=== PATIENT | female | born 1995 | race Caucasian/White ===

== ENCOUNTER → 2017-01-23 | Outpatient (CLI) | payer OTHER ==
--- NOTE | 2017-01-23 21:57 | WWHP ---
DATE OF SERVICE: 01/23/2017 CHIEF COMPLAINT: Patient is here for her routine gynecologic exam. HPI: This is a 21-year-old G0 with an LMP of 01/15/2017. The patient is currently using condoms for control. She is interested in hormonal methods of control. She states she did use control pills for about 3 to 4 months but she stopped. She had some pain in her leg and there was concern of possibly being a blood clot. This was found not to be a blood clot. 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 Her periods are regular every month. She has never had a pelvic exam in the past. PAST MEDICAL HISTORY: Migraine headaches in the past and these did not seem to be caused by her control pills. MEDICATIONS: None. ALLERGIES: No known drug allergies. PAST SURGICAL HISTORY: None. 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 She has no history of STDs. She did complete her HPV vaccination series. SOCIAL HISTORY: She denies tobacco, alcohol or drug use. She lives with her parents. She is currently attending at [employer] [facility] [place] studying accounting. She is in her first year. She has been with her boyfriend for 6 months and is sexually active. She had one other sexual partner in her lifetime and started sexual activity at age 18. FAMILY HISTORY: Grandfather had diabetes. Mother had lymphoma. REVIEW OF SYSTEMS: Weight has been stable. She denies respiratory, cardiac, or GI problems. PHYSICAL EXAM: Blood pressure 138/81. Height 6 feet 0 inches. Weight 189 pounds. Temperature 98.0, pulse 126. This a well-developed, well-nourished white female who is alert and oriented x3 in no acute distress. HEENT is within normal limits. NECK: Supple without mass or thyromegaly. CHEST AND LUNGS: Clear to auscultation. HEART: Mild tachycardia. Breasts are without mass or discharge. Axillary exam is negative for adenopathy. BACK: Negative for CVA tenderness. ABDOMEN: Soft, nontender, without palpable masses. PELVIC EXAM: Normal external genitalia. Cervix and vagina appear normal. There is no unusual discharge. There is no cervical motion tenderness. The uterus is midposition, nongravid size and nontender. There are no palpable adnexal masses or tenderness. Rectal exam was deferred. EXTREMITIES: Nontender. IMPRESSION: A 21-year-old gynecologically healthy female requesting contraception. PLAN: 1. Pap smear was deferred until age 23. 2. Self-breast examination was discussed. 3. GC and Chlamydia screening were obtained from the cervix. 4. STD prevention was discussed. I have stressed importance of limiting sexual partners and to use condoms for STD prevention. 5. We have discussed a number of types of control including barrier methods and hormonal methods. We discussed various hormonal methods including oral contraception, NuvaRing, Depo-Provera injections and the implant. The patient would like to try the NuvaRing for control. 6. Prescription for the NuvaRing was given to the patient. She will insert her first one on the first day of the onset of her next normal period. I spent a fair amount of time discussing its proper use. A prescription for the upcoming year was given to the patient. She was also instructed to read the instructions in detail when she does get a prescription. 7. She will call if she has any problems. 8. She will return in one year and p.r.n.
== END | disposition home or self-care (01) ==
LOC: WWCWWP 13:01
PROVIDERS: ATTEND Obstetrics & Gynecology
DX: Z11.3 Encounter for screening for infections with a predominantly sexual mode of transmission (principal)
CPT/HCPCS: 87491; 87591

== ENCOUNTER → 2017-04-03 | Outpatient (CLI) | payer OTHER | END | disposition home or self-care (01) | LOC: WWCWWP 11:19 | PROVIDERS: ATTEND Obstetrics & Gynecology | DX: Z53.9 Procedure and treatment not carried out, unspecified reason (principal) ==

== ENCOUNTER 2023-06-21 09:57 | Emergency (ER) | payer OTHER ==
--- NOTE | 2023-06-21 10:11 | ED ---
Chest Pain HPI - General Chief Complaint: Chest Pain Stated Complaint: Chest Pain Time Seen by Provider: 06/21/23 10:02 Source: patient, RN notes reviewed Mode of arrival: wheelchair Limitations: no limitations - History of Present Illness Initial Comments: This is a 27-year-old female who presents to the emergency department for chest pain. States that around 9 AM she started to develop a dull achy sensation in the center of her chest and epigastric region. States that she also felt very nauseous. Symptoms have improved, but are still somewhat present. Denies any personal or family history of cardiac problems. She is one month . States that she is breast-feeding. For dinner last night she had pizza. Denies any known hx of gallbladder problems. Denies any fevers, chills, sore throat, cough, palpitations, vomiting, diarrhea, back pain, or headaches. MD Complaint: chest pain - Related Data Home Medications Medication Instructions Recorded Confirmed Vit No.179/Iron/Folic 1 tablet PO DAILY 05/19/23 06/21/23 [ Tablet] Allergies Allergy/AdvReac Type Severity Reaction Status Date / Time No Known Allergies Allergy Verified 06/21/23 12:43 Review of Systems ROS Statement: Those systems with pertinent positive or pertinent negative responses have been documented in the HPI. ROS Other: All systems not noted in ROS Statement are negative. Past Medical History Additional Past Medical History / Comment(s): MIGRAINES History of Any Multi-Drug Resistant Organisms: None Reported Past Surgical History: No Surgical Hx Reported Past Anesthesia/Blood Transfusion Reactions: No Reported Reaction Past Psychological History: No Psychological Hx Reported Smoking Status: Never smoker Past Alcohol Use History: None Reported Past Drug Use History: None Reported - Past Family History Mother Family Medical History: No Reported History General Exam Limitations: no limitations General appearance: alert, in no apparent distress Head exam: Present: atraumatic, normocephalic, normal inspection Respiratory exam: Present: normal lung sounds bilaterally. Absent: respiratory distress, wheezes, rales, rhonchi, stridor, chest wall tenderness Cardiovascular Exam: Present: regular rate, normal rhythm, normal heart sounds. Absent: systolic murmur, diastolic murmur, rubs, gallop, clicks GI/Abdominal exam: Present: soft, normal bowel sounds. Absent: distended, tenderness, guarding, rebound, rigid Neurological exam: Present: alert, oriented X3, CN II-XII intact Psychiatric exam: Present: normal affect, normal mood Skin exam: Present: warm, dry, intact, normal color. Absent: rash Course Vital Signs 06/21/23 06/21/23 09:59 12:45 Temperature 98 F 98.3 F Pulse Rate 63 74 Respiratory 16 18 Rate Blood Pressure 118/79 135/77 O2 Sat by Pulse 100 97 Oximetry Chest Pain MDM - MDM This is a 27-year-old female who presents to the emergency department for chest pain. Was pt. sent in by a medical professional or institution? @ -No Did you speak to anyone other than the patient for history? @ -No Did you review nursing and triage notes? @ -Yes, and I agree, it is accurate with regards to the patient's symptoms. Were old charts reviewed? @ -No Differential Diagnosis? @ -Differential Chest Pain: Stable Angina, Unstable Angina, STEMI, NSTEMI Aortic Dissection, Pneumothorax, Musculoskeletal, Esophageal Spasm GERD, Cholecystitis, Pancreatitis, Zoster, this is not meant to be an all-inclusive list. EKG interpreted by me (3pts min.)? @ -EKG interpreted by me demonstrating the following: Sinus rhythm. Ventricular rate 64 beats per minute, VA interval 170 ms, QRS duration 110 ms, QTC 418 ms. X-rays interpreted by me (1pt min.)? @ -Chest x-ray obtained, my interpretation identifies no localized consolidations or infiltrates. CT interpreted by me (1pt min.)? @ -Not obtained U/S interpreted by me (1pt. min.)? @ -Gallbladder US obtained. My interpretation identifies cholelithiasis. What testing was considered but not performed? (CT, X-rays, U/S, labs)? Why? @ -None What meds were considered but not given? Why? @ -None Did you discuss the management of the patient with other professionals? @ -Yes, Dr. Yeh, who reviewed the patient's films and advised that if she was currently asymptomatic, she could follow-up in the office with strict return parameters. Did you reconcile home meds? @ -No Was smoking cessation discussed for >3mins.? @ -No Was critical care preformed (if so, how long)? @ -No Were there social determinants of health that impacted care today? How? (Homele ssness, low income, unemployed, alcoholism, drug addiction, transportation, low edu. Level, literacy, decrease access to med. care, senior care, rehab)? @ -No Was there de-escalation of care discussed even if they declined? (Discuss DNR or withdrawal of care, Hospice)? @ -No What co-morbidities impacted this encounter? (DM, HTN, Smoking, COPD, CAD, Cancer, CVA, Hep., AIDS, mental health diagnosis, sleep apnea, morbid obesity)? @ -Anxiety Was patient admitted / discharged? @ -Discharged. Lab work obtained revealing a minor elevation in LFTs and otherwise no acute process. Chest x-ray reveals no acute findings. Given that she had epigastric pain and nausea, in association with the elevated LFTs, we did obtain a gallbladder ultrasound. This revealed gallbladder wall thickening with sludge and small gallstones. Radiology advised correlation for acute cholecystitis. Patient was completely asymptomatic on reevaluation without any pain medication. I did discuss the case with Dr. Yeh, general surgery. He reviewed the patient's ultrasound, and advised that because she was currently asymptomatic, she could follow up with one of their providers in the office. Patient is comfortable with this, as she is not in any active pain. Case management made her an appointment with Dr. Street on 06/26 at 11:30 AM. This was discussed with the patient who will follow up as scheduled. Advised to follow a low-fat bland diet for the meantime to reduce the risk of future episodes. Also advised ibuprofen and Tylenol as needed for pain relief. Undiagnosed new problem with uncertain prognosis? @ -None Drug Therapy requiring intensive monitoring for toxicity (Heparin, Nitro, Insulin, Cardizem)? @ -None Were any procedures done? @ -None Diagnosis/symptom? @ -Biliary colic, cholelithiasis Acute, or Chronic, or Acute on Chronic? @ -Acute Uncomplicated (without systemic symptoms) or Complicated (systemic symptoms)? @ -Uncomplicated Side effects of treatment? @ -None Exacerbation, Progression, or Severe Exacerbation] @ -Not applicable Poses a threat to life or bodily function? @ -No Return precautions reviewed in depth, the patient is instructed to return to the emergency department with any new, worsening, or concerning symptoms. Patient verbalized understanding. This case was discussed in detail with the attending ED physician, Dr. Greer. Presentation, findings, and treatment plan discussed in detail as well. Disposition Clinical Impression: Biliary colic, Cholelithiasis Disposition: HOME SELF-CARE Instructions (If sedation given, give patient instructions): Biliary Colic (ED) , Gallstones (ED) Additional Instructions: Return to the emergency department with any new, worsening, or concerning symptoms. You will need to follow a low-fat and bland diet for the meantime to reduce the risk of a recurrence. Alternate with ibuprofen and Tylenol as needed for pain relief. Follow up with general surgery on 06/26 as scheduled. Is patient prescribed a controlled substance at d/c from ED?: No Referrals: None,Stated [Primary Care Provider] - 1-[address] MD [STAFF PHYSICIAN] - 06/26/23 3:00 pm
[2023-06-21 10:26] LABS: Basophils % (A) 0 %; Eosinophils # (A) 0.6 k/uL (0-0.7); Eosinophils % (A) 9 %; HCT 39.6 % (34.0-46.0); HGB 13.4 gm/dL (11.4-16.0); Lymphocytes # (A) 1.9 k/uL (1.0-4.8); Lymphocytes % (A) 27 %; MCH 28.5 pg (25.0-35.0); MCHC 33.9 g/dL (31.0-37.0); MCV 84.1 fL (80.0-100.0); Mean Platelet Volume 7.4; Monocytes # (A) 0.3 k/uL (0-1.0); Monocytes % (A) 4 %; Neutrophils % (A) 59 %; Platelet Count 295 k/uL (150-450); RBC 4.71 m/uL (3.80-5.40); RDW 13.9 % (11.5-15.5); WBC 6.8 k/uL (3.8-10.6)
[2023-06-21 10:39] LABS: ALT 47 U/L (4-34); AST 49 U/L (14-36); African American GFR (CKD) >90 (>60 ml/min/1.73 sqM); Albumin 4.4 g/dL (3.5-5.0); Alkaline Phosphatase 151 U/L (38-126); Anion Gap 11 mmol/L; Blood Urea Nitrogen 13 mg/dL (7-17); Calcium 10.2 mg/dL (8.4-10.2); Carbon Dioxide 22 mmol/L (22-30); Chloride 105 mmol/L (98-107); Glucose 110 mg/dL (74-99); Magnesium 1.8 mg/dL (1.6-2.3); Non-African American GFR(CKD) >90 (>60 ml/min/1.73 sqM); Potassium 3.7 mmol/L (3.5-5.1); Sodium 138 mmol/L (137-145); Total Bilirubin 0.6 mg/dL (0.2-1.3); Total Protein 7.7 g/dL (6.3-8.2)
[2023-06-21 10:44] LABS: Prothrombin Time 10.3 sec (9.0-12.0)
[2023-06-21 11:17] LABS: Amylase 61 U/L (30-110); Lipase 112 U/L (23-300)
--- NOTE | 2023-06-21 11:32 | XR ---
EXAMINATION TYPE: XR chest 2V DATE OF EXAM: 06/21/2023 COMPARISON: 01/24/2016 TECHNIQUE: PA and lateral views submitted. HISTORY: Chest pain and shortness of breath FINDINGS: The lungs are clear and there is no pneumothorax, pleural effusion, or focal pneumonia. Heart size normal and no overt failure. Osseous structures demonstrate hypertrophic and degenerative changes of the spine. Hyperinflation suggests COPD. Mild prominence of the azygos vein. IMPRESSION: 1. No acute process. Mild upper mediastinal prominence may represent a prominent azygos vein. Short-t erm follow-up CT chest could be obtained for confirmation to exclude other etiologies. 2. Correlate for asthma or COPD.
--- NOTE | 2023-06-21 12:32 | US ---
EXAMINATION TYPE: US gallbladder DATE OF EXAM: 06/21/2023 COMPARISON: NONE CLINICAL INDICATION: Female, 27 years old with history of Epigastric pain, elevated LFTs; Epigastric pain for 1 day; elevated LFT TECHNIQUE: Multiple sonographic images of the right upper quadrant are obtained. FINDINGS: EXAM MEASUREMENTS: Liver Length: 19.0 cm Gallbladder Wall: 0.42 cm CBD: 0.17 cm Right Kidney: 12.9 x 4.9 x 5.4 cm VP INFORMATICS NOTES: Pancreas: Tail obscured by overlying bowel gas Liver: Hepatomegaly Gallbladder: Shadowing echogenic foci with thickened gallbladder wall Evidence for sonographic Lindsay's sign: No CBD: wnl Right Kidney: wnl IMPRESSION: 1. Mild hepatomegaly with coarsened hepatic echotexture. Correlate with liver function studies for he patocellular disease or hepatic steatosis. 2. The gallbladder wall is thickened and there is evidence of sludge with tiny gallstones. Correlate for acute cholecystitis.
[2023-06-21] MEDS ORDERED: ACET/COD 300 MG/30 MG STARTER PACK 6 TAB BTL PO STA (13:38)
[2023-06-21] MEDS ORDERED: IBUPROFEN 600 MG STARTER PACK 4 TAB BTL PO STA (13:38)
[2023-06-21] MEDS ORDERED: ONDANSETRON 4 MG ODT STARTER PACK 2 TAB BTL PO STA (13:38)
[2023-06-21 14:09] VITALS: BP 116/81; PULSE 70; RESP 17; TEMP 98
== END 2023-06-21 14:08 | disposition home or self-care (01) ==
LOC: EC 09:57
DX: K80.50 Calculus of bile duct without cholangitis or cholecystitis without obstruction (principal)
CPT/HCPCS: 36415; 93005; 85379; 80053; 82150; 83690; 83735; 84484; 85025; 85610; 85730; 71046; 76705; 99285; S0119

== ENCOUNTER 2024-09-03 06:01 | Inpatient (IN) | payer OTHER ==
[2024-09-03] MEDS ORDERED: LIDOCAINE 0.5% (PF) 5 MG/ML (50 ML SDV) SQ PRN (06:36)
[2024-09-03] MEDS ORDERED: TRANEXAMIC 1,000 MG/100ML-NACL 1,000 MG in EMPTY BAG 1 BAG IV PRN (06:36)
[2024-09-03] MEDS ORDERED: OXYTOCIN 10 UNIT/ML 1 ML VIAL IM PRN (06:36)
[2024-09-03] MEDS ORDERED: miSOPROStoL 200 MCG TAB RECTAL PRN (06:36)
[2024-09-03] MEDS ORDERED: miSOPROStoL 200 MCG TAB PO PRN (06:36)
[2024-09-03] MEDS ORDERED: CARBOPROST TROMETHAMINE 250 MCG/ML 1 ML AMP IM PRN (06:36)
[2024-09-03] MEDS ORDERED: METHYLERGONOVINE 0.2 MG/ML 1 ML AMP IM PRN (06:36)
[2024-09-03] MEDS ORDERED: TERBUTALINE 1 MG/ML VIAL SQ PRN (06:36)
[2024-09-03] MEDS: LACTATED RINGERS 1,000 ML IV SCH ×2 (06:45→07:25)
[2024-09-03] MEDS: OXYTOCIN 30 UNITS/500 ML NS 30 UNIT in SALINE 1 500ML.BAG IV SCH ×2 (06:50→23:01)
[2024-09-03 07:05] LABS: Basophils % (A) 1 %; Eosinophils # (A) 0.3 k/uL (0-0.7); Eosinophils % (A) 3 %; HCT 35.5 % (34.0-46.0); HGB 11.5 gm/dL (11.4-16.0); Hypochromasia Slight; Lymphocytes # (A) 2.2 k/uL (1.0-4.8); Lymphocytes % (A) 24 %; MCH 28.1 pg (25.0-35.0); MCHC 32.3 g/dL (31.0-37.0); MCV 87.1 fL (80.0-100.0); Mean Platelet Volume 7.4; Monocytes # (A) 0.5 k/uL (0-1.0); Monocytes % (A) 6 %; Neutrophils % (A) 66 %; Platelet Count 323 k/uL (150-450); RBC 4.07 m/uL (3.80-5.40); RDW 13.6 % (11.5-15.5); WBC 9.2 k/uL (3.8-10.6)
[2024-09-03] MEDS ORDERED: NALBUPHINE 10 MG/ML (10 ML MDV) IV PRN (08:40)
--- NOTE | 2024-09-03 08:44 | P.HPOB ---
History of Present Illness H&P Date: 09/03/24 Chief Complaint: 39-0/7 weeks, elective induction The patient is a 28-year-old 2 para 1-0-0-1 admitted at 39-0/7 weeks as established by last menstrual period confirmed by 7-week ultrasound. She is admitted for elective induction with all signs reassuring, category 1 heart rate tracing. Her has been entirely uncomplicated and group B strep status is negative. Obstetrical history: 2 para 1-0-0-1 with 1 term vaginal delivery without complications. Current statistics are listed in history of present illness. EDC of 09/10/2024 was established by last menstrual period and confirmed by 7-week ultrasound. Laboratory workup demonstrates a blood type of O+ with a negative antibody screen. Rubella status is immune. The remainder of the laboratory workup was within normal limits. 1 hour Glucola was normal and group B strep status is negative. Gynecologic history: Unremarkable with no history of any infections to include STDs. Review of Systems Review of systems is confined to history of present illness. Past Medical History Additional Past Medical History / Comment(s): MIGRAINES History of Any Multi-Drug Resistant Organisms: None Reported Past Surgical History: Cholecystectomy Additional Past Surgical History / Comment(s): July 2023-cholecystectomy Past Anesthesia/Blood Transfusion Reactions: No Reported Reaction Past Psychological History: No Psychological Hx Reported Smoking Status: Never smoker Past Alcohol Use History: None Reported Past Drug Use History: None Reported - Past Family History Mother Family Medical History: Cancer Medications and Allergies Home Medications Medication Instructions Recorded Confirmed Type Vit No.179/Iron/Folic 1 tablet PO DAILY 05/19/23 09/03/24 History [ Tablet] Allergies Allergy/AdvReac Type Severity Reaction Status Date / Time No Known Allergies Allergy Verified 06/21/23 12:43 Exam Intake and Output 09/02/24 09/03/24 09/03/24 22:59 06:59 14:59 Other: Weight 113.398 kg In general, this is a well-developed, well-nourished white female in no acute distress. Her heart has a regular rhythm and rate without murmur. Her lungs are clear to auscultation bilaterally in all bauer. Her abdomen is gravid, nondistended, has normal active bowel sounds, soft, nontender, and without any palpable masses aside from the uterine fundus. Her extremities are without any cyanosis, clubbing, or significant edema and are nontender to palpation bilaterally. Digital cervical examination demonstrates her cervix to be 2+ centimeters dilated, 60 to 70% effaced, with a vertex and presentation at -2 station. Artificial rupture of membranes is carried out demonstrating clear flu id. Results Result Diagrams: 09/03/24 06:56 Assessment and Plan (1) Term Current Visit: Yes Status: Acute Code(s): Z34.90 - ENCNTR FOR SUPRVSN OF NORMAL , UNSP, UNSP TRIMESTER SNOMED Code(s): 49382596 Plan: The patient has been admitted for elective induction of labor. Pitocin augmentation has been started and she has undergone artificial rupture membranes. She will have close maternal and surveillance and expectant management will be practiced. She is a good candidate for either IV or epidural analgesia, which ever she may choose.
[2024-09-03] MEDS ORDERED: ROPIVACAINE 5 MG/ML 30 ML VIAL ONE (14:25)
[2024-09-03] MEDS ORDERED: SODIUM CHLORIDE 0.9% 250 ML BAG ONE (14:25)
[2024-09-03] MEDS ORDERED: fentaNYL (PF) 50 MCG/ML 5 ML AMP ONE (14:25)
[2024-09-03] MEDS: CITRIC ACID-SODIUM CITRATE 15 ML CUP PO ONE (21:36)
[2024-09-03] MEDS ORDERED: OXYTOCIN 30 UNITS/500 ML NS BAG IV ONE (21:46)
[2024-09-03] MEDS ORDERED: KETOROLAC 15 MG/ML 1 ML VIAL ONE (21:46)
[2024-09-03] MEDS ORDERED: MORPHINE SULFATE (PF) 0.3 MG/0.3 ML SYR ONE (21:46)
[2024-09-03] MEDS ORDERED: NALBUPHINE 10 MG/ML (10 ML MDV) ONE (21:46)
[2024-09-03] MEDS ORDERED: ONDANSETRON 4 MG/2 ML VIAL ONE (21:46)
[2024-09-03] MEDS ORDERED: diphenhydrAMINE 25 MG CAP PO PRN (22:36)
[2024-09-03] MEDS ORDERED: ZOLPIDEM 5 MG TAB PO PRN (22:36)
[2024-09-03] MEDS ORDERED: ONDANSETRON 4 MG/2 ML VIAL IVP PRN (22:36)
[2024-09-03] MEDS ORDERED: diphenhydrAMINE 50 MG CAP PO PRN (22:36)
[2024-09-03] MEDS ORDERED: NALOXONE 0.4 MG/ML 1 ML VIAL IV PRN (22:36)
[2024-09-03] MEDS ORDERED: SIMETHICONE 80 MG CHEWABLE PO PRN (22:36)
[2024-09-03] MEDS ORDERED: LANOLIN CREAM 1 GM TUBE TOPICAL PRN (22:36)
[2024-09-03] MEDS ORDERED: diphenhydrAMINE 50 MG/ML 1 ML VIAL IVP PRN ×2 (22:36)
[2024-09-03] MEDS ORDERED: METOCLOPRAMIDE 5 MG/ML 2 ML VIAL IVP PRN (22:36)
--- NOTE | 2024-09-03 22:44 | P.OP ---
Date of Procedure: 09/03/24 Preoperative Diagnosis: #1. 39-0/7 weeks, induction #2. Arrest of dilation and descent #3. intolerance of labor Postoperative Diagnosis: Same plus #4. occiput posterior position Procedure(s) Performed: #1. Primary low-transverse section Anesthesia: epidural Surgeon: Lawrence Esteves Heel Cover Softener #1: Mayte Giraldo Estimated Blood Loss (ml): 716 IV fluids (ml): 1,000 Urine output (ml): 1,000 Pathology: none sent Condition: stable Disposition: floor Operative Findings: The operatively, the patient had labor to approximately 7 to 8 cm where she remained for approximately 5 to 6 hours. She additionally began having repetitive variable decelerations ultimately prompting stoppage of Pitocin. Continued decelerations would not allow Pitocin to be restarted. As result of both arrest of dilation and descent and intolerance of the labor process, the decision was made jointly with the patient to proceed with primary low- transverse section. She was taken to the operating room where she was delivered of a viable 8 pound 11 ounce baby boy with Apgars of 8 at 1 minute and 9 at 5 minutes delivered in the direct occiput posterior position. The placenta was delivered manually, intact, and grossly normal with a grossly normal three- vessel cord. The uterus, tubes, and ovaries were entirely normal to inspection. Description of Procedure: The patient was prepped and draped in usual fashion after epidural anesthesia had been bolused by the anesthesiologist. A Pfannenstiel incision was made and extended into the abdominal cavity without difficulty. The bladder peritoneum was significantly distal to the intended site of incision and was left intact. A 2 cm incision was made in the transverse plane of the lower uterine segment to enter the uterus at which time a small amount of clear fluid was again noted. The incision was extended in both directions using the bandage scissors. The head was delivered up and through the incision in the occiput posterior position where the nose and mouth were thoroughly suction. The remainder of the was delivered onto the field where the cord was doubly clamped, cut, and the passed for resuscitative measures with weight and Apgars as noted above. The placenta was delivered manually and intact as noted above. The uterus was exteriorized and the anterior cavity the uterus swept of any remaining placental or membranous fragments. The margins of the uterine incision were grasped with Deshpande clamps and the incision closed in 2 layers. The first layer was a running locking stitch of 0 chromic catgut followed by a running imbricating layer of 0 chromic catgut, each from margin to margin. Hemostasis appeared to be excellent. The posterior cul-de-sac was suctioned with a guard followed by laparotomy sponge. The uterine and ovarian findings were normal as noted above. The uterus was replaced within the abdominal cavity and the uterine incision reexamined and found to be hemostatic. The gutters were swept of any remaining blood, fluid, or clot. The parietal peritoneum was loosely reapproximated and the layer of muscles examined and found to be hemostatic. The fascia was closed with a single running stitch of 0 Vicryl proceeding from lateral margin to lateral margin. The subcutaneous tissues were irrigated, made hemostatic with the Bovie, and reapproximated with a running stitch of 3-0 plain catgut. The skin was reapproximated with a running subcuticular stitch of 4-0 Vicryl followed by half-inch Steri-Strips placed with Mastisol. Quantitative blood loss for the case was 716 mL. There were no complications. All sponge, instrument, and needle counts were correct. The patient tolerated the procedure well and proceeded to the recovery room in stable condition. Both mother and are resting comfortably in recovery.
[2024-09-04] MEDS: ACETAMINOPHEN TAB 500 MG TAB PO SCH (00:25)
[2024-09-04] MEDS: KETOROLAC 15 MG/ML 1 ML VIAL IVP PRN (04:30)
[2024-09-04 05:53] LABS: Basophils % (A) 0 %; Eosinophils # (A) 0.1 k/uL (0-0.7); Eosinophils % (A) 1 %; HCT 32.5 % (34.0-46.0); HGB 10.7 gm/dL (11.4-16.0); Lymphocytes # (A) 1.7 k/uL (1.0-4.8); Lymphocytes % (A) 12 %; MCH 28.5 pg (25.0-35.0); MCHC 32.9 g/dL (31.0-37.0); MCV 86.7 fL (80.0-100.0); Monocytes # (A) 0.8 k/uL (0-1.0); Monocytes % (A) 6 %; Neutrophils # (A) 10.6 k/uL (1.3-7.7); Neutrophils % (A) 80 %; Platelet Count 259 k/uL (150-450); RBC 3.75 m/uL (3.80-5.40); RDW 13.6 % (11.5-15.5); WBC 13.3 k/uL (3.8-10.6)
--- NOTE | 2024-09-04 06:19 | P.PN ---
Progress Note - Text Progress Note Date: 09/04/24 Patient doing well. Ambulating w/o paresthesia or weakness. Denies headache. Minimal pruritis. Pain well controlled. Epidural site w/ mild bruising. POD#1 s/p w/ epidural duramorph - continue multimodal analgesia
[2024-09-04] MEDS ORDERED: ACETAMINOPHEN TAB 500 MG TAB PO SCH (08:00)
--- NOTE | 2024-09-04 08:33 | P.PNOBGPC ---
Subjective - Subjective Patient reports: Reports appetite normal, Reports voiding normally, Reports pain well controlled, Reports ambulating normally : doing well, nursing well Objective - Vital Signs Latest vital signs: Vital Signs Temp Pulse Resp BP Pulse Ox 09/04/24 02:35 97.8 F 61 16 102/68 97 09/04/24 00:35 98.6 F 102 H 16 131/69 97 09/04/24 00:20 101 H 16 122/64 97 09/04/24 00:05 95 16 127/65 96 09/03/24 23:50 96 16 118/58 94 L 09/03/24 23:35 97 16 112/56 96 09/03/24 23:20 93 16 112/59 97 09/03/24 23:05 88 16 113/59 99 09/03/24 22:50 94 16 115/56 98 09/03/24 22:35 97.4 F L 102 H 16 108/59 96 Intake and Output 09/03/24 09/04/24 09/04/24 22:59 06:59 14:59 Intake Total 1000 Output Total 1716 895 Balance -716 -895 Intake: IV 1000 Output: Urine 1000 800 Uretheral (Betancourt) 800 Output, Quantitative 716 95 Blood Loss Other: Voiding Method Indwelling Catheter - Exam Extremities: Present: normal Abdomen: Present: normal appearance, soft. Absent: distention, tenderness Incision: Present: normal, dry, intact Uterus: Present: normal, firm (The uterine fundus is tonic and appropriately tender below the umbilicus.) - Labs Labs: Abnormal Lab Results - Last 24 Hours (Table) 09/04/24 Range/Units 05:38 WBC 13.3 H (3.8-10.6) k/uL RBC 3.75 L (3.80-5.40) m/uL Hgb 10.7 L (11.4-16.0) gm/dL Hct 32.5 L (34.0-46.0) % Neutrophils # 10.6 H (1.3-7.7) k/uL Assessment and Plan (1) Term Current Visit: Yes Status: Acute Code(s): Z34.90 - ENCNTR FOR SUPRVSN OF NORMAL , UNSP, UNSP TRIMESTER SNOMED Code(s): 79967536 (2) S/P section Current Visit: Yes Status: Acute Code(s): Z98.891 - HISTORY OF UTERINE SCAR FROM PREVIOUS SURGERY SNOMED Code(s): 096458029 Plan: Continue routine and postoperative care. I have encouraged the patient ambulate in the hallways routinely. She is tolerating a regular diet. I would anticipate discharge home tomorrow pending no complications.
[2024-09-04] MEDS: SENNOSIDES-DOCUSATE SODIUM 1 EACH TAB PO SCH (08:36)
[2024-09-04] MEDS: IBUPROFEN 800 MG TAB PO SCH (15:40)
[2024-09-04 22:00] VITALS: RESP 16
[2024-09-05] MEDS ORDERED: IBUPROFEN 800 MG TAB PO SCH
[2024-09-05 08:27] VITALS: BP 114/66; PULSE 78; TEMP 97.4
--- NOTE | 2024-09-05 10:53 | P.DS ---
Providers Date of admission: 09/03/24 06:01 Expected date of discharge: 09/05/24 Attending physician: Lawrence Esteves Primary care physician: Stated None - Discharge Diagnosis(es) (1) Term Current Visit: Yes Status: Acute (2) S/P section Current Visit: Yes Status: Acute Hospital Course: The patient is a 28-year-old 2 para 1-0-0-1 admitted at 39-0/7 weeks by good dating parameters. She is admitted for elective induction with all signs reassuring and a category 1 heart rate tracing. Her was uncomplicated and group B strep status was negative. On labor and delivery, she had Pitocin started and underwent artificial rupture of membranes. She made slow progress through the latent phase of labor and ultimately did progress into the active phase of labor where she reached approximately 7 to 8 cm of dilation and then arrested further dilation and descent over the course of the next 5 to 6 hours. She additionally began to develop repetitive moderate to deep variable decelerations with any degree of contractions prompting Pitocin augmentation to be halted. Given both the arrest of dilation and descent and intolerance of labor, she was counseled and agreed to undergo primary low-transverse section. She was taken to the operating room where she was delivered of a viable 8 pound 11 ounce baby boy with Apgars of 8 at 1 minute and 9 at 5 minutes. Her post and postoperative course was unremarkable with vital signs remaining stable and her temperature was afebrile throughout. She was deemed stable for discharge on postoperative day #2 and was discharged home to follow-up in the office in 2 weeks for an incision check in 6 weeks routinely. Discharge instructions included calling for any significantly increased bleeding or foul-smelling lochia, significantly increased fever abdominal pain, perineal complaints, breast complaints, incisional complaints, or anything else that concerned her. She was additionally instructed to have nothing in the vagina for at least 6 weeks time to include intercourse and to abstain from any heavy lifting over the same period of time. She was lastly instructed to do no driving until off of all pain medications or 2 weeks time, whichever came first. She understood her instructions and agrees to follow-up as noted above. Discharge medications included evha-tus-loqqddg analgesic pain medications as well as a prescription for oxycodone 5 mg, 1-2 p.o. every 6 hours as needed pain, #20 dispensed with no refills. Maternal blood type is O+ and rubella status is immune. Discharge hemoglobin and hematocrit were 10.7 and 32.5 respectively. Procedures: #1. Pitocin induction #2. Artificial rupture of membranes #3. Epidural analgesia #4. Primary low-transverse section Patient Condition at Discharge: Stable Plan - Discharge Summary New Discharge Prescriptions: No Action Vit No.179/Iron/Folic [ Tablet] 1 tablet PO DAILY Discharge Medication List Vit No.179/Iron/Folic [ Tablet] 1 tablet PO DAILY 05/19/23 [History] Follow up Appointment(s)/Referral(s): Lawrence Esteves MD [STAFF PHYSICIAN] - 2 Weeks (2 week follow up appt 09/17/2024 1:45pm 6 weeks follow up appt 10/15/2024 @ 1:45 ) Discharge Disposition: HOME SELF-CARE
== END 2024-09-05 14:00 | disposition home or self-care (01) | DRG 788 ==
LOC: 4FBP 06:01
PROVIDERS: ADMIT Obstetrics & Gynecology; ATTEND Obstetrics & Gynecology
PROC: 10907ZC Drainage of Amniotic Fluid, Therapeutic from Products of Conception, Via Natural or Artificial Opening (ICD-10-PCS; 2024-09-03)
PROC: 3E033VJ Introduction of Other Hormone into Peripheral Vein, Percutaneous Approach (ICD-10-PCS; 2024-09-03)
PROC: 10D00Z1 Extraction of Products of Conception, Low, Open Approach (ICD-10-PCS; principal; 2024-09-03 22:00)
DX: O32.8XX0 Maternal care for other malpresentation of fetus, not applicable or unspecified (principal); O62.1 Secondary uterine inertia; O76 Abnormality in fetal heart rate and rhythm complicating labor and delivery; Z37.0 Single live birth; Z3A.39 39 weeks gestation of pregnancy
CPT/HCPCS: 85025; 86850; 86900; 86901

== ENCOUNTER 2024-11-27 07:53 | Day surgery (SDC) | payer OTHER ==
--- NOTE | 2024-11-26 02:12 | HP ---
HISTORY AND PHYSICAL PROPOSED DATE OF SURGERY: 11/27/2024. HISTORY OF PRESENT ILLNESS: The patient is a 28-year-old, 2, para 2-0-0-2 who presents for visit with no specific concerns, but has requested permanent sterilization. After discussion of options for treatment, she has opted to proceed with bilateral salpingectomy. She is aware of other long-term and reversible methods of contraception. PAST MEDICAL HISTORY: Significant only for migraine headaches. PAST SURGICAL HISTORY: Significant for cholecystectomy in 2022. OBSTETRICAL HISTORY: 2, para 2-0-0-2, with a vaginal delivery followed by a section. Current method of contraception is condoms leading up to permanent sterilization. GYNECOLOGIC HISTORY: Unremarkable with no history of any infections to include STDs. FAMILY HISTORY: Noncontributory. SOCIAL HISTORY: The patient is single and employed at [employer]. She is a nonsmoker and denies any other social concerns of consequence. CURRENT MEDICATIONS: Include only vitamins daily. ALLERGIES: No known drug allergies. REVIEW OF SYSTEMS: Confined to History of Present Illness. PHYSICAL EXAMINATION: VITAL SIGNS: Stable. The patient is afebrile. GENERAL: This is a well-developed, well-nourished white female in no acute distress. HEART: Has a regular rhythm and rate without murmur. LUNGS: Clear to auscultation bilaterally in all bauer. ABDOMEN: Nondistended, has normoactive bowel sounds, soft, nontender, without any palpable masses, hepatosplenomegaly, or hernias. EXTREMITIES: Without any cyanosis, clubbing, or edema and are nontender to palpation. PELVIC: Deferred to the operating room. ASSESSMENT AND PLAN: Contraceptive management: The patient has requested permanent sterilization and is aware of other intermediate and reversible methods of control. We had a discussion regarding the options for tubal occlusion versus tubal removal and she has requested to proceed with laparoscopic bilateral salpingectomy. The risks and complications of the procedure have been thoroughly discussed including the risks for bleeding, bleeding requiring transfusion, infection, and injury to local structures to specifically include the bowel, bladder, and ureters. She has understood all of these and has agreed to proceed. We are scheduled for laparoscopic bilateral salpingectomy on the morning of November 27, 2024. MMODL / IJN: [id number] /
[~2024-11-27 07:53] MED LIST: Pre Op ABX Message 1 EACH MISC MISCELLANE ONE
[2024-11-27] MEDS ORDERED: droPERidol 5 MG/2 ML VIAL IVP ONE (08:03)
[2024-11-27] MEDS ORDERED: SCOPOLAMINE 1 MG/72 HR PATCH TRANSDERM ONE (08:03)
[2024-11-27] MEDS ORDERED: HYDROmorphone 0.5 MG/0.5 ML SYRINGE IVP PRN (08:03)
[2024-11-27] MEDS: IV FLUID CONTINUATION 1,000 ML IV ONE (08:20)
[2024-11-27] MEDS: LIDOCAINE 1% (10MG/ML) FOR IV START INTRADERMA PRN (08:20)
[2024-11-27] MEDS: LACTATED RINGERS 1,000 ML IV SCH (08:20)
[2024-11-27] MEDS: ONDANSETRON 4 MG/2 ML VIAL IVP ONE (08:36)
[2024-11-27] MEDS: DEXAMETHASONE SOD PHOSPHATE 4 MG/ML 1 ML VIAL IV ONE (08:37)
[2024-11-27] MEDS ORDERED: SUCCINYLCHOLINE CHLORIDE 200 MG/10 ML VIAL IV ONE (09:14)
[2024-11-27] MEDS ORDERED: fentaNYL (PF) 50 MCG/ML 2 ML AMP ONE (09:14)
[2024-11-27] MEDS ORDERED: PHENYLEPHRINE 10 MG/ML VIAL ONE (09:14)
[2024-11-27] MEDS ORDERED: NEOSTIGMINE 1 MG/ML 10 ML VIAL ONE (09:14)
[2024-11-27] MEDS ORDERED: ePHEDrine 50 MG/ML 1 ML VIAL ONE (09:14)
[2024-11-27] MEDS ORDERED: LIDOCAINE 1% INJ 10MG/ML (20 ML MDV) ONE (09:14)
[2024-11-27] MEDS ORDERED: KETOROLAC 15 MG/ML 1 ML VIAL ONE (09:14)
[2024-11-27] MEDS ORDERED: PROPOFOL 10 MG/ML 20 ML VIAL IV ONE (09:14)
[2024-11-27] MEDS ORDERED: GLYCOPYRROLATE 0.2 MG/ML 2 ML VIAL ONE (09:14)
[2024-11-27] MEDS ORDERED: ROCURONIUM 10 MG/ML (5 ML VIAL) IV ONE (09:14)
[2024-11-27] MEDS: BUPIVACAINE (PF) 0.5% 30 ML VIAL SQ ONE ×2 (09:50→10:06)
[2024-11-27] MEDS: LACTATED RINGERS 1,000 ML IV ONE (10:02)
[2024-11-27] MEDS ORDERED: diphenhydrAMINE 25 MG CAP PO PRN (10:31)
[2024-11-27] MEDS ORDERED: diphenhydrAMINE 50 MG/ML 1 ML VIAL IVP PRN (10:31)
[2024-11-27] MEDS ORDERED: ONDANSETRON 4 MG/2 ML VIAL IVP PRN (10:31)
[2024-11-27] MEDS ORDERED: METOCLOPRAMIDE 5 MG/ML 2 ML VIAL IVP PRN (10:31)
[2024-11-27] MEDS ORDERED: SIMETHICONE 80 MG CHEWABLE PO PRN (10:31)
[2024-11-27] MEDS ORDERED: ACETAMINOPHEN TAB 325 MG TAB PO PRN (10:31)
[2024-11-27] MEDS ORDERED: IBUPROFEN 600 MG TAB PO PRN (10:31)
[2024-11-27] MEDS ORDERED: KETOROLAC 15 MG/ML 1 ML VIAL IVP PRN (10:31)
--- NOTE | 2024-11-27 10:39 | P.OP ---
Date of Procedure: 11/27/24 Preoperative Diagnosis: #1. Multiparity #2. Undesired fertility Postoperative Diagnosis: Same plus #3. Abdominal omental adhesions Procedure(s) Performed: #1. Laparoscopic bilateral salpingectomy #2. Adhesiolysis Anesthesia: BALTAZAR Surgeon: Lawrence Esteves [employer] Manager #1: Keyonna Dsouza Estimated Blood Loss (ml): 5 IV fluids (ml): 600 Urine output (ml): 100 Pathology: other (Bilateral fallopian tubes) Condition: stable Disposition: PACU Operative Findings: Operative pelvic examination demonstrated a roughly 5-week midplane to slightly retroverted mobile normal shaped uterus with normal adnexa bilaterally. Intraoperatively, the uterus, tubes, and ovaries were entirely normal to inspection though there was a obvious scar from her section at the bladder flap. The uterus itself was fairly globular and boggy in appearance. There was no evidence of any pathology in the pelvis to include endometriosis. There was a moderately sized omental adhesion to the anterior abdominal wall likely from previous cholecystectomy which was taken down sharply intraoperatively. The bilateral fallopian tubes were removed from their fimbriated end to the insertion and the uterus and both together as a single specimen to pathology. Description of Procedure: Was prepped and draped in usual fashion after general endotracheal anesthesia was administered by the anesthesiologist. A speculum was placed in the anterior lip of the cervix grasped with a single-tooth tenaculum though the uterus was very high in the pelvis. An acorn cannula was placed for intraoperative uterine manipulation. The bladder was drained of approximately 100 mL of clear rudi urine. Attention was turned to the abdomen where an incision was made in a vertical fold of the umbilicus, approximately 5 mm in length along insertion of a 5 mm optical trocar under direct visualization without difficulty. A pneumoperitoneum was infused. A site was selected in the right lower quadrant approximately 10 to 12 cm lateral and 3 to 4 cm inferior to the optical trocar where 5 mm incision was made the transverse plane allowing insertion of a 5 mm optical trocar under direct visualization without difficulty. A mirroring trocar was placed in the left lower quadrant with an 8 mm trocar. The omental adhesion to the anterior abdominal wall which appeared to be approximately 3 to 4 cm in thickness but had no vascularity nor any bowel involvement was taken down sharply using the LigaSure device. A grasper was utilized to grasp the left fallopian tube and the LigaSure device was utilized to divide it from its underlying tissues from the fimbriated end to the cornua of the uterus. The tube was removed through the 8 mm trocar without difficulty. A similar operation was carried out on the right side without difficulty. There was no ongoing bleeding from any of the operative sites and there was no further pathology noted. All instrumentation was removed and the pneumoperitoneum evacuated completely through the trocars after which time the trocars were removed. The skin incisions were closed with interrupted subcuticular stitches of 4-0 Vicryl followed by half-inch Steri-Strips placed with Mastisol. Prior to placing the Steri-Strips, the incisions were infused with a total of 10 mL of half percent Marcaine without epinephrine equally divided among the 3 incisions. Estimated blood loss for the case was 5 mL or less. There were no complications. All sponge, instrument, and needle counts were correct. The patient tolerated the procedure well and proceeded to the recovery room in stable condition.
[2024-11-27 10:41] VITALS: TEMP 97.9
[2024-11-27] MEDS ORDERED: LACTATED RINGERS 1,000 ML IV SCH (10:45)
[2024-11-27 11:31] VITALS: BP 113/74; PULSE 68; RESP 18
== END 2024-11-27 11:51 | disposition home or self-care (01) ==
LOC: OR 07:53
PROVIDERS: ATTEND Obstetrics & Gynecology
DX: Z30.2 Encounter for sterilization (principal)
CPT/HCPCS: 81025; 58661; J0330; J1100; J2710; J2405; J2003; J3010; J1885; J2704; J2371; J0665; J1596

== ENCOUNTER → 2025-01-28 | Outpatient (CLI) | payer OTHER ==
--- NOTE | 2025-01-28 15:46 | US ---
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 FINDINGS: GLAND SIZE: Right Lobe: 6.1x2.1x2.5cm Overall Parenchyma: heterogeneous Left Lobe: 6.0x1.8x2.5cm Overall Parenchyma: heterogeneous Isthmus Thickness: 0.5cm NODULES RIGHT: # of nodules measured on right: 1 1. 0.5x0.3x0.5mid mid, cystic or almost completely cystic, anechoic nodule, which is wider than tall , with smooth margins, without echogenic foci. LEFT: # of nodules measured on left: 0 ISTHMUS: # of nodules measured in the isthmus: 0 Bilateral neck scanned, no evidence of lymphadenopathy. IMPRESSION: Thyromegaly with markedly heterogeneous parenchyma and a benign 5 mm cyst in the right midpole. Consi jeb goiter or diffuse thyroiditis. [facility], , 01/28/2025 3:43 PM
== END | disposition home or self-care (01) ==
LOC: RADUSWWP 12:53
PROVIDERS: ATTEND Internal Medicine
DX: E04.1 Nontoxic single thyroid nodule (principal)
CPT/HCPCS: 76536

== ENCOUNTER → 2025-03-11 | Outpatient (CLI) | payer OTHER ==
--- NOTE | 2025-03-12 11:42 | NM ---
EXAMINATION TYPE: NM thyroid image w uptake DATE OF EXAM: 03/12/2025 COMPARISON: Thyroid ultrasound. CLINICAL INDICATION: Female, 29 years old with history of E02 subclinical iodine deficiency hypothyro idism; TECHNIQUE: Thyroid iodine uptake is calculated and images performed after the oral administration of 307 uCi 1-123 Capsule. FINDINGS: There is normal distribution of activity throughout the gland. The 4 hour iodine uptake is calculated at 24.4% (normal range 8-14%). The 24-hour iodine uptake is calculated at 42.3% (normal r homar 15-35%). IMPRESSION: Findings compatible with hyperthyroidism [facility], , 03/12/2025 11:40 AM
== END | disposition home or self-care (01) ==
LOC: RADNMMAIN 08:34
PROVIDERS: ATTEND Internal Medicine
DX: E02 Subclinical iodine-deficiency hypothyroidism (principal)
CPT/HCPCS: 78014; A9516